=== PATIENT | female | born 1940 | race Caucasian/White ===

== ENCOUNTER 2016-08-29 21:02 | Emergency (ER) | payer MEDICARE, BC, OTHER ==
[2016-02-13 12:10] VITALS: BMI 23.4
[~2016-08-29 21:02] MED LIST: ACETAMINOPHEN325 MG PO; ATIVAN1 MG PO; ATIVAN2 MG PO; BAYER CHEWABLE81 MG PO; CATAPRES0.1 MG PO; CORDARONE200 MG PO; COZAAR50 MG PO; CRESTOR10 MG PO; DYAZIDE 37.5/251 CAP PO; LASIX20 MG PO; LISINOPRIL5 MG PO; NORVASC5 MG PO; PLAVIX75 MG PO; PRADAXA75 MG PO; PREMARIN1.25 MG PO; PROZAC20 MG PO; PROZAC40 MG PO; SORINE80 MG PO; SYNTHROID137 MCG PO
[2016-08-29 23:05] LABS: BASOPHILS 0.5 % (0-2); EOSINOPHILS 10.2 % (0-7); HEMATOCRIT 38.9 % (36.0-48.0); HEMOGLOBIN 12.4 g/dL (12-16); IMMATURE GRANULOCYTES 0.1 % (0-5); LYMPHOCYTES 23.4 % (15-50); MCH 26.6 pg (26.0-34.0); MCHC 31.9 g/dL (31.0-37.0); MCV 83.5 fL (80.0-100.0); MEAN PLATELET VOLUME 10.7 fL (7.4-10.4); NEUTROPHILS 57.8 % (40-80); PLATELET COUNT 269 10x3/uL (130-400); RBC 4.66 10x6/uL (4.00-5.40); RDW 15.1 % (11.5-14.5)
[2016-08-29 23:27] LABS: ALBUMIN 3.5 g/dL (3.4-5.0); ALKALINE PHOSPHATASE 183 U/L (46-116); ALT (SGPT) 13 U/L (10-68); BILIRUBIN - TOTAL 0.31 mg/dL (0.2-1.3); CALC OSMOLALITY 290 mosm/kg (275-300); CALCIUM 8.9 mg/dL (8.5-10.1); CARBON DIOXIDE 26.5 mmol/L (21.0-32.0); CHLORIDE - SERUM 105 mmol/L (98-107); CREATININE - SERUM 1.1 mg/dL (0.6-1.3); GLUCOSE 115 mg/dL (74-106); POTASSIUM - SERUM 3.3 mmol/L (3.5-5.1); PROTEIN - SERUM 7.8 g/dL (6.4-8.2); SODIUM 142 mmol/L (136-145); UREA NITROGEN 33 mg/dL (7-18); eGFR NON AFRICAN AMERICAN 51 mL/min (90-120)
[2016-08-29 23:34] LABS: CREATINE KINASE 148 UL (21-215); MAGNESIUM - SERUM 2.3 mg/dL (1.8-2.4); PRO BNP 2273 pg/mL (0-450)
[2016-08-29 23:37] LABS: TROPONIN-I < 0.017 ng/mL (0.000-0.060)
== END 2016-08-30 00:35 | disposition home or self-care (01) ==
LOC: D.ER 21:02
PROVIDERS: Emergency Medicine
DX: E87.6 Hypokalemia (principal); I50.9 Heart failure, unspecified; I10 Essential (primary) hypertension; Z86.73 Personal history of transient ischemic attack (TIA), and cerebral infarction without residual deficits

== ENCOUNTER 2016-10-18 12:53 | Inpatient (IN) | payer MEDICARE, BC, OTHER ==
[~2016-10-18] VITALS: Ht 167.6 cm; Wt 57.2 kg
[2016-10-18 13:46] LABS: BASOPHILS 0.5 % (0-2); EOSINOPHILS 6.3 % (0-7); HEMATOCRIT 39.6 % (36.0-48.0); HEMOGLOBIN 12.6 g/dL (12-16); IMMATURE GRANULOCYTES 0.2 % (0-5); MCH 26.6 pg (26.0-34.0); MCHC 31.8 g/dL (31.0-37.0); MCV 83.7 fL (80.0-100.0); MEAN PLATELET VOLUME 10.5 fL (7.4-10.4); MONOCYTES 11.4 % (2-11); NEUTROPHILS 58.6 % (40-80); PLATELET COUNT 228 10x3/uL (130-400); RBC 4.73 10x6/uL (4.00-5.40); RDW 16.4 % (11.5-14.5); WBC 6.4 10x3/uL (4.8-10.8)
[2016-10-18 14:13] LABS: ALBUMIN 3.8 g/dL (3.4-5.0); ANION GAP 19.6 mmol/L (8-16); BILIRUBIN - TOTAL 0.5 mg/dL (0.2-1.3); CALCIUM 9.3 mg/dL (8.5-10.1); CARBON DIOXIDE 22.6 mmol/L (21.0-32.0); CREATININE - SERUM 0.9 mg/dL (0.6-1.3); POTASSIUM - SERUM 3.2 mmol/L (3.5-5.1); PROTEIN - SERUM 7.3 g/dL (6.4-8.2)
[2016-10-18 14:27] LABS: APPEARANCE HAZY (CLEAR); BACTERIA FEW /hpf (NONE SEEN); BILIRUBIN NEGATIVE (NEGATIVE); COLOR YELLOW (YELLOW); EPITHELIAL CELLS 0-5 /hpf (0-5); GLUCOSE NEGATIVE (NEGATIVE); KETONE NEGATIVE (NEGATIVE); LEUKOCYTE ESTERASE 2+ (NEGATIVE); NITRITE NEGATIVE (NEGATIVE); PROTEIN TRACE mg/dL (NEGATIVE); SPECIFIC GRAVITY 1.015 (1.005-1.020); UROBILINOGEN NORMAL (NORMAL)
[2016-10-18 17:38] LABS: CKMB 1.3 U/L (0.0-3.6); CREATINE KINASE 123 UL (21-215); TROPONIN-I < 0.017 ng/mL (0.000-0.060)
[2016-10-18 19:30] VITALS: BP 128/62
[2016-10-18 23:10] VITALS: BP 187/94
--- NOTE | 2016-10-18 23:34 | NUR ---
PT IS LYING IN BED WOULD LIKE TO BE WASHED UP, RETRIEVED WASH BASIN , TOWELS AND OTHER SUPPLIES FOR PT, ASSISTED WITH PERSONAL CARE. STATED SHE LIVES AT HOME ALONE AND ABLE TO TAKE CARE OF SELF BUT RECENTLY, WEAKNESS ON RT SIDE WORSE AND MAY NEED ASSISTANCE NOW JUST TO WALK. REHAB CONSULT IN FOR PT. BED IN LOW POSITION, CALL LIGHT IN REACH
--- NOTE | 2016-10-18 23:40 | NUR ---
PT COMPLAINS OF MUNGUIA/ ADVISED NO MEDS ON MAR FOR MUNGUIA AND WILL NEED TO CALL DOCTOR. PT DECLINED AND STATED WILL JUST TRY AND SLEEP IT OFF. NO OTHER COMPLAINTS AT THIS TIME
--- NOTE | 2016-10-19 00:20 | NUR ---
PT STATED SHE TAKES ATAIVAN AT HOME TO HELP HER SLEEP, NO MEDS ON PT'S EMAR THAT WOULD ASSIST WITH SLEEP. PT CONTINUES TO GET UP OUT OF BED WITHOUT USING CALL LIGHT, PUT NEYDA DEIDRE UNDER PT, BED ALARM ALSO, PT STILL CONTINUES TO TRY AN DGET OUT OF BED. VERY RESTLESS. WILL CONTINUE TO MONITOR
[2016-10-19 00:29] LABS: CKMB 0.9 U/L (0.0-3.6); CREATINE KINASE 104 UL (21-215); TROPONIN-I 0.016 ng/mL (0.000-0.060)
[2016-10-19 03:15] VITALS: BP 185/82
[2016-10-19 05:05] LABS: BASOPHILS 0.3 % (0-2); HEMATOCRIT 39.1 % (36.0-48.0); HEMOGLOBIN 12.6 g/dL (12-16); IMMATURE GRANULOCYTES 0.2 % (0-5); LYMPHOCYTES 25.6 % (15-50); MCH 26.6 pg (26.0-34.0); MCHC 32.2 g/dL (31.0-37.0); MCV 82.7 fL (80.0-100.0); MEAN PLATELET VOLUME 10.6 fL (7.4-10.4); MONOCYTES 11.8 % (2-11); NEUTROPHILS 55.1 % (40-80); PLATELET COUNT 231 10x3/uL (130-400); RBC 4.73 10x6/uL (4.00-5.40); RDW 16.5 % (11.5-14.5); WBC 5.8 10x3/uL (4.8-10.8)
[2016-10-19 05:31] LABS: ALBUMIN 3.7 g/dL (3.4-5.0); ANION GAP 15.5 mmol/L (8-16); BILIRUBIN - TOTAL 0.6 mg/dL (0.2-1.3); CALCIUM 9.2 mg/dL (8.5-10.1); CARBON DIOXIDE 22.6 mmol/L (21.0-32.0); CREATININE - SERUM 0.9 mg/dL (0.6-1.3); LDL-HDL RATIO 1.4 ratio (1.5-3.5); POTASSIUM - SERUM 3.1 mmol/L (3.5-5.1); PROTEIN - SERUM 7.3 g/dL (6.4-8.2)
[2016-10-19 05:45] LABS: CKMB 1.2 U/L (0.0-3.6); CREATINE KINASE 106 UL (21-215); TROPONIN-I < 0.017 ng/mL (0.000-0.060)
[2016-10-19 06:20] VITALS: BP 128/62; BMI 20.3
--- NOTE | 2016-10-19 07:40 | NUR ---
PATIENT RECEIVED ALERT IN BED. NO SIGNS OF DISTRESS NOTED. SIDE RAILS UP X2. BED IN LOW POSITION. CALL LIGHT IN REACH. NEYDA ALARM ON.
--- NOTE | 2016-10-19 07:52 | NUR ---
BP 212/90. APRESOLINE ADMINISTERED PER PRN ORDER.
--- NOTE | 2016-10-19 08:00 | NUR ---
ASSESSED RESP STATUS OF PT. BILATERAL CLEAR BREATH SOUNDS NOTED TO ALL REGIONS OF LUNGS. OEYR370% NO SIGNS OF ANY RESPIRATORY COMPROMISE.
[2016-10-19 08:58] VITALS: BP 212/90
--- NOTE | 2016-10-19 09:00 | NUR ---
PATIENT SITTING UP ON SIDE OF BED ALERT AND EATING BREAKFAST. BED IN LOW POSITION. CALL LIGHT IN REACH. NEYDA ALARM ON.
[2016-10-19 09:46] VITALS: BP 136/61
--- NOTE | 2016-10-19 10:17 | NUR ---
Rehab Note- Acute Rehab Prescreen ordered. The patient has an appropriate acute rehab screen. She has a PT, OT, ST eval order, and also a MRi ordered. Will await functional mobility. Will continue to follow the patient at this time. Thank you for this referral! Delia Phan RN Clinical Liaison, [facility] Rehab
--- NOTE | 2016-10-19 11:53 | NUR ---
PATIENT SITTING UP IN CHAIR AT BEDSIDE. NO SIGNS OF DISTRESS NOTED. CALL LIGHT IN REACH. NEYDA ALARM ON.
--- NOTE | 2016-10-19 12:02 | NUR ---
PER DR SCHAFFER, UNABLE TO DO MRI DUE TO BULLET IN PATIENT'S HEAD IS TOO CLOSE TO CAROTID TO BE SAFE.
--- NOTE | 2016-10-19 12:04 | NUR ---
DR REYNOLDS'S OFFICE NOTIFIED UNABLE TO DO MRI.
[2016-10-19] MEDS ORDERED: IPRAT-ALBUT 0.5-3 ML UPD (12:06)
[2016-10-19] MEDS ORDERED: HYDRALAZINE20 MG/ML IV (12:07)
[2016-10-19] MEDS ORDERED: PROTONIX40 MG PO (12:08)
[2016-10-19] MEDS ORDERED: Demerol IV (12:08)
[2016-10-19] MEDS ORDERED: ONDANSETRON4 MG/2 M3 IV (12:08)
[2016-10-19] MEDS ORDERED: ATIVAN1 MG PO (12:08)
[2016-10-19 12:38] VITALS: Ht 167.6 cm; Wt 57.2 kg
[2016-10-19 13:07] VITALS: BP 159/72
--- NOTE | 2016-10-19 13:46 | NUR ---
PATIENT REPOSITIONED IN BED. WELL TOLERATED. SIDE RAILS UP X2. BED IN LOW POSITION. CALL LIGHT IN REACH. NEYDA ALARM ON. AT BEDSIDE.
[2016-10-19 15:41] VITALS: BP 136/68
--- NOTE | 2016-10-19 17:20 | NUR ---
SITTING UP IN CHAIR ALERT. NO SIGNS OF DISTRESS NOTED. CALL LIGHT IN REACH. DENIES NEEDS.
--- NOTE | 2016-10-19 18:17 | NUR ---
OT NOTE: PT COMPLETED SHOWER WITH MIN/CGA. PT COMPLETED DYNAMIC SITTING/STANDING BALANCE AXS WITH CGA/MIN A. THANK YOU, JEFF WILLETT/Goldie
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
--- NOTE | 2016-10-19 21:30 | NUR ---
PT BED ALARM GOING OFF, WHEN IN PT'S ROOM PT WAS STANDING UP WANTED TO KNOW THERES SO MANY SHOOTINGS GOING ON OUTSIFR AND PEOPLE YELLING AT EACH OTHER ASSURED PT SHE WAS SAFE THAT THIS WAS A HOSPITAL AND NO ONE IS GOING TO HURT HER. HAD TO CALL SECURITY TO ENSURE PT THAT SHE WAS SAFE AND WE DO HAVE SECURITY HERE. LEFT LIGHT ON FOR PT AND ADDED ATIVAN TO BED TIME MEDS. BED IN LOW POSITION BC LIGHT IN REACG
--- NOTE | 2016-10-19 22:02 | NUR ---
HARJINDER STONE ATTENTION PT BP IS 192/90, GAVE PT 10 MG OF APRESALINE. WILL CONTINUE TO MONITOR
[2016-10-20] VITALS: BP 192/92
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
--- NOTE | 2016-10-20 03:30 | NUR ---
RECIEVED CALL FROM STANTON ON MONITORS, WAS ADVISED THAT PT HR WAS FIB AT 0200 AND SINCE 1999 PT WAS PRETTY STEADY. STANTON STATED PT HAS BEEN SR SINCE 7-9 THEN HR HAS BEEN FLUCTUATIONG BETWEEN 103-138, HAD MONOGRAM AND LETTER PASTER TAKE PT VITALS AND PT BP IS 143/89 AND HR IS 120. SPOKE TO SCHOOL CAFETERIA COOK AND WAS ADVISED TO GET PT TO TAKE ATIVAN AND SEE IF HR SLOWS DOWN. WILL CONTINUE TO MONITOR
[2016-10-20 04:00] VITALS: BP 145/89
--- NOTE | 2016-10-20 04:03 | NUR ---
TODD MONTERO AND DELANO RN ASSISTING PATIENT BACK TO BED. NO VISIBLE SIGNS OF DISTRESS. BED IN LOWEST POSITION AND CALL LIGHT WITHIN REACH.
[2016-10-20 05:56] LABS: BASOPHILS 0.3 % (0-2); EOSINOPHILS 7.4 % (0-7); HEMATOCRIT 40.8 % (36.0-48.0); HEMOGLOBIN 13.2 g/dL (12-16); IMMATURE GRANULOCYTES 0.2 % (0-5); LYMPHOCYTES 26.9 % (15-50); MCH 26.9 pg (26.0-34.0); MCHC 32.4 g/dL (31.0-37.0); MCV 83.1 fL (80.0-100.0); MEAN PLATELET VOLUME 11.1 fL (7.4-10.4); MONOCYTES 13.4 % (2-11); NEUTROPHILS 51.8 % (40-80); PLATELET COUNT 255 10x3/uL (130-400); RBC 4.91 10x6/uL (4.00-5.40); RDW 17.2 % (11.5-14.5); WBC 6.2 10x3/uL (4.8-10.8)
[2016-10-20 06:28] LABS: ALBUMIN 3.4 g/dL (3.4-5.0); ANION GAP 15.4 mmol/L (8-16); BILIRUBIN - TOTAL 0.4 mg/dL (0.2-1.3); CALCIUM 9.6 mg/dL (8.5-10.1); CREATININE - SERUM 1.1 mg/dL (0.6-1.3); POTASSIUM - SERUM 3.4 mmol/L (3.5-5.1); PROTEIN - SERUM 7.4 g/dL (6.4-8.2)
--- NOTE | 2016-10-20 07:09 | NUR ---
SPOKE TO STANTON IN REGARDS TO PT HR, STATED HR IS STILL GOING UP GRADUALLY EVEN AFTER ATIVAN GIVEN AT 0409, CALLED DUNCAN GUADARRAMA AND WAS ADVISED TO CALL DR. REILLY WINDSOR CARDIOLOGY AND RECEIVED CALL BACK FROM DR. MURGUIA. ADVISED OF PT GRADUAL AFIB SINCE 0200. DR MURGUIA STATED WILL HAVE DR SALINAS COME SEE HER THIS MORNING DURING HIS ROUNDS
--- NOTE | 2016-10-20 07:37 | NUR ---
REPORT RECEIVED FROM INVESTIGATOR CASH SHORTAGE NURSE. CALL LIGHT IN REACH.
--- NOTE | 2016-10-20 08:10 | NUR ---
ASSESSMENT COMPLETED. BED ALARM ON. CALL LIGHT IN REACH. WILL CONTINUE WITH PLAN OF CARE.
[2016-10-20 08:42] VITALS: BP 124/86
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
--- NOTE | 2016-10-20 10:44 | NUR ---
AM MEDS ADMINISTERED PER IPNEDA KOO.
--- NOTE | 2016-10-20 12:14 | NUR ---
Rehab Note- Visited with the patient and her about [facility] IRF, the patient is stating she wants to go home to get organized and then come back to rehab. wants her to come straight to rehab after discharge from the acute hospital. Can admit the patient to [facility] Rehab when ready for discharge from the acute hospital. Thank you for this referral! Delia Phan RN Clinical Liaison, [facility] Rehab
--- NOTE | 2016-10-20 12:20 | NUR ---
IN ROOM WITH PATIENT. NO NEEDS VOICED AT THIS TIME. CALL LIGHT IN REACH.
[2016-10-20 12:52] VITALS: BP 109/64
--- NOTE | 2016-10-20 14:52 | NUR ---
VISITORS IN ROOM AT THIS TIME. DENIES NEEDS. CALL LIGHT IN REACH.
--- NOTE | 2016-10-20 16:15 | NUR ---
AMBULATING IN HALLWAY WITH FAMILY.
--- NOTE | 2016-10-20 16:20 | NUR ---
AMBULATING IN HALLWAY WITH SISTERS. TOLERATING WELL.
--- NOTE | 2016-10-20 18:25 | NUR ---
NO CHANGES IN INITIAL ASSESSMENT COMPLETED. CALL LIGHT IN REACH. BED ALARM ON. WILL CONTINUE WITH PLAN OF CARE.
[2016-10-20 20:00] VITALS: BP 115/68
--- NOTE | 2016-10-20 22:00 | NUR ---
PATIENT IS IN BED. CONFUSED. NO SIGNS OF DISTRESS NOTED. NEYDA MAT ALARM ON. PATIENT DENIES NEEDS AT THIS TIME. BED IN LOWEST POSITION, CALL LIGHT IN REACH. BED RIALS UP X'S 2.
[2016-10-21] VITALS: BP 115/64
[2016-10-21 04:00] VITALS: BP 136/79
[2016-10-21 05:38] LABS: BASOPHILS 0.4 % (0-2); EOSINOPHILS 6.3 % (0-7); HEMATOCRIT 37.8 % (36.0-48.0); HEMOGLOBIN 12.2 g/dL (12-16); IMMATURE GRANULOCYTES 0.3 % (0-5); LYMPHOCYTES 26.7 % (15-50); MCH 26.7 pg (26.0-34.0); MCHC 32.3 g/dL (31.0-37.0); MCV 82.7 fL (80.0-100.0); MEAN PLATELET VOLUME 10.8 fL (7.4-10.4); NEUTROPHILS 52.3 % (40-80); PLATELET COUNT 236 10x3/uL (130-400); RBC 4.57 10x6/uL (4.00-5.40); RDW 17.1 % (11.5-14.5); WBC 7.5 10x3/uL (4.8-10.8)
[2016-10-21 05:45] LABS: ALBUMIN 3.2 g/dL (3.4-5.0); BILIRUBIN - TOTAL 0.38 mg/dL (0.2-1.3); CALCIUM 8.8 mg/dL (8.5-10.1); CARBON DIOXIDE 25.5 mmol/L (21.0-32.0); CREATININE - SERUM 1.2 mg/dL (0.6-1.3); POTASSIUM - SERUM 3.5 mmol/L (3.5-5.1); PROTEIN - SERUM 6.6 g/dL (6.4-8.2)
--- NOTE | 2016-10-21 07:27 | NUR ---
REPORT RECEIVED FROM MICROWAVE RADIO TECHNICIAN NURSE. CALL LIGHT IN REACH.
[2016-10-21 08:58] VITALS: BP 124/72
--- NOTE | 2016-10-21 09:20 | NUR ---
ASSESSMENT COMPLETED. AM MEDS ADMINISTERED. DEMEROL IVP FOR PAIN AND ATIVAN PO PER ANXIETY AND ATTEMPTING TO GET OUT OF BED. ALARM ON. REFUSES SCDs. CALL LIGHT IN REACH. WILL CONTINUE WITH PLAN OF CARE.
--- NOTE | 2016-10-21 11:20 | NUR ---
IN BED WITH EYES CLOSED. RESP EVEN AND UNLABORED. CALL LIGHT IN REACH.
--- NOTE | 2016-10-21 12:24 | NUR ---
NUTRITION F/U CHART REVIEWED. PT VISIT. TOLERATING AHA DIET. WILL CONTINUE TO PROVIDE DIET. MONITOR PT PROGRESS. RD FOLLOWING
[2016-10-21 12:48] VITALS: BP 133/79
[2016-10-21] MEDS ORDERED: ZOFRAN4 MG PO (13:00)
[2016-10-21] MEDS ORDERED: LEVAQUIN250 MG PO (13:00)
--- NOTE | 2016-10-21 13:22 | NUR ---
LEVAQUIN 250 MG PO PER PINEDA FARMER. FAMILY IN ROOM. CALL LIGHT IN REACH.
--- NOTE | 2016-10-21 13:41 | NUR ---
Patient Name: CAITLIN BROOKS Admission Status: ER Accout number: [id number] Admission Date: 10-18-2016 : 1940 Admission Diagnosis:WEAKNESS Attending: GIBSON JORDAN Current LOS: 3 Anticipated DC Date: Planned Disposition: Inpatient Rehab Primary Insurance: MEDICARE A & B Discharge Planning Comments: CM met with patient and (Joel) to discuss discharge planning needs. Patient would like HH set up when she is discharged home from inpatient rehab. states that he helps her with whatever she needs. She has a cane at home and 1 step to enter. CM will continue to follow and assist as needed. [place]CP: [facility] [place] Joel Brooks (spouse) [phone] Grinder Operator: Lucy Vitale * Is the patient Alert and Oriented? Yes 0 * How many steps to enter\exit or inside your home? 1 0 * PCP aramis 0 * [place] * Preadmission Environment Home with Family 0 * ADLs Partial Dependent 0 * Partial ADLs (Assistance needed) Ambulation Bathing Dressing Eating Medication Management 0 * Equipment Cane 0 * List name and contact numbers for known caregivers / representatives who currently or will assist patient after discharge: joel brooks ([phone]) 0 * Community resources currently utilized None 0 * Additional services required to return to the preadmission environment? Yes 0 * Can the patient safely return to the preadmission environment? Yes 0 * Has this patient been hospitalized within the prior 30 days at any hospital? No 0 Grand Total: 0
--- NOTE | 2016-10-21 14:47 | NUR ---
OT NOTE: PT ABLE TO PERFORM BED MOB WITH LIMITED ASSIST; AMB IN ROOM WITH ASSIST, HOWEVER, PT REPORTS THAT SHE HAS BEEN DOING IT WITHOUT ASSIST. EXPLAINED FALL PRECAUTIONS, AND THE NEED FOR HER TO ASK FOR HELP WHEN SHE WANTS TO GET UP; PT PERFORMED FEEDING TASKS WITHOUT DIFFICULTY; REPORTS THAT SHE IS STILL NOT BACK TO PLOF ; PT TO BE D/CD TO REHAB TODAY.
--- NOTE | 2016-10-21 15:06 | NUR ---
REPORT CALLED TO REHAB NURSE.
--- NOTE | 2016-10-21 15:30 | NUR ---
DC'D TO REHAB. ESCORTED TO ROOM 1108B VIA WC WITH NURSE WITH BELONGINGS.
--- NOTE | 2016-10-21 19:16 | EC ---
PATIENT:CAITLIN BROOKS DATE OF SERVICE: 10/18/16 SEX: F MEDICAL RECORD: [id number] DATE OF : 38 LOCATION:[facility] AGE OF PATIENT: 76 ADMISSION DATE: 10/18/16 REFERRING PHYSICIAN: INTERPRETING PHYSICIAN: JESSE OZUNA MD ECHOCARDIOGRAM REPORT ECHO CHARGES 4 ECHO COMPLETE CLINICAL DIAGNOSIS: TIA VS. CVA HX OF CAD/STENTS/CVA ECHOCARDIOGRAPHIC MEASUREMENTS (adult normal given) AC root (d.<3.7cm) 3.6 cm LV Septum d (<1.2 cm> 1.4 cm Valve Excursion 1.4 cm LV Septum (systole) 2.0 cm Left Atria (s.<4.0cm> 3.1 cm LVPW d(<1.2cm) 1.6 cm RV (d.<2.3cm) 4.5 cm LVPW (sytole) 1.9 cm LV diastole(<5.6CM) 4.9 cm MV E-F(>70mm/sec) cm LV systole 3.2 cm LVOT Diameter 1.5 cm MV exc.(>10mm) 1.7 cm Est.ejection fraction (50-75%) % Pericardial Effusion N DOPPLER: LVIT cm/sec A 74.0 cm/sec E 122 cm/sec LA cm/sec RVSP 45 mmHg LVOT 100 cm/sec AOP1/2T m/s Asc. Ao 116 cm/sec RVOT 78 cm/sec RA cm/sec PA 121 cm/sec AV Gradient Peak 10.28mmHg AV Mean 5.85 mmHg AV Area 1.1 cm MV Gradient Peak 4.82 mmHg MV Mean 1.83 mmHg MV Area cm COMMENTS: Strap Machine Operator Automatic: Baldev BUCIO Perishable Freight Inspector: Giovanna Ozuna TAPE# PACS DATE OF SERVICE: 10/20/2016 PROCEDURE: Transthoracic Echocardiogram FINDINGS: 1. Left ventricle: The left ventricle shows moderate concentric left ventricular hypertrophy with an ejection fraction of 65%. There is no regional wall motion abnormalities. The inflow characteristics are consistent with diastolic dysfunction. 2. The left atrium is mildly enlarged with normal function. ECHOCARDIOGRAM REPORT [id number] CAITLIN BROOKS 3. The mitral valve has mild mitral regurgitation. 4. The right atrium is dilated; however, the right ventricular systolic pressures are near normal to mildly elevated. 5. The right ventricle is mildly enlarged with right ventricular hypertrophy. 6. The tricuspid valve shows a trileaflet structure, mild sclerosis without significant evidence of stenosis or regurgitation. 7. The pulmonic valve is not well visualized, but by Doppler evaluation appears to be normal. 8. The pericardium is normal. 9. The inferior vena cava was not demonstrated on this evaluation. CONCLUSIONS: The patient has evidence of hypertensive heart disease without significant evidence of valvular abnormalities. TRANSINT:[id number] Voice Confirmation ID: [id number] DOCUMENT ID: [id number] JESSE OZUNA MD at 1916 CC: [id number] DICTATION DATE: 10/20/16 1610 VOICE WRITING REPORTER: 10/20/16 2229 DIS IN 10/21/16 [facility] [address] [place] [address]
== END 2016-10-21 15:30 | DRG 948 ==
LOC: D.ER 12:53 → D.MS 16:11
PROVIDERS: Emergency Medicine; ADMIT Family Medicine
DX: R53.1 Weakness (principal); I69.351 Hemiplegia and hemiparesis following cerebral infarction affecting right dominant side; I16.0 Hypertensive urgency; E87.6 Hypokalemia; I48.91 Unspecified atrial fibrillation; I69.391 Dysphagia following cerebral infarction; R13.10 Dysphagia, unspecified; I25.10 Atherosclerotic heart disease of native coronary artery without angina pectoris; E03.9 Hypothyroidism, unspecified; Z91.81 History of falling; W34.00XS Accidental discharge from unspecified firearms or gun, sequela

== ENCOUNTER 2016-10-21 15:56 | Inpatient (IN) | payer MEDICARE, BC, OTHER ==
[~2016-10-21] VITALS: Ht 167.6 cm; Wt 62.1 kg
[~2016-10-21 15:56] MED LIST changes: +Demerol IV; +HYDRALAZINE20 MG/ML IV; +IPRAT-ALBUT 0.5-3 ML UPD; +LEVAQUIN250 MG PO; +ONDANSETRON4 MG/2 M3 IV; +PROTONIX40 MG PO; +ZOFRAN4 MG PO
[2016-10-21 19:22] VITALS: BP 97/61; BMI 22.2
[2016-10-21 21:55] VITALS: BP 181/68
[2016-10-22 06:57] LABS: BASOPHILS 0.5 % (0-2); EOSINOPHILS 7.9 % (0-7); HEMATOCRIT 36.5 % (36.0-48.0); HEMOGLOBIN 11.6 g/dL (12-16); IMMATURE GRANULOCYTES 0.2 % (0-5); LYMPHOCYTES 25.7 % (15-50); MCH 26.4 pg (26.0-34.0); MCHC 31.8 g/dL (31.0-37.0); MCV 83.1 fL (80.0-100.0); MEAN PLATELET VOLUME 10.8 fL (7.4-10.4); MONOCYTES 9.7 % (2-11); PLATELET COUNT 226 10x3/uL (130-400); RBC 4.39 10x6/uL (4.00-5.40); RDW 17.3 % (11.5-14.5); WBC 5.8 10x3/uL (4.8-10.8)
[2016-10-22 07:04] LABS: ANION GAP 12.8 mmol/L (8-16); CALCIUM 8.5 mg/dL (8.5-10.1); CARBON DIOXIDE 25.5 mmol/L (21.0-32.0); CREATININE - SERUM 1.1 mg/dL (0.6-1.3); POTASSIUM - SERUM 3.3 mmol/L (3.5-5.1)
[2016-10-22 08:11] VITALS: BP 111/50
[2016-10-22 09:52] VITALS: Ht 167.6 cm; Wt 62.1 kg
[2016-10-22 21:45] VITALS: BP 182/79
[2016-10-23 07:11] VITALS: BP 149/66
[2016-10-23 08:00] VITALS: BP 149/66
[2016-10-23 20:00] VITALS: BP 192/86
[2016-10-24 19:00] VITALS: BP 186/78
[2016-10-24 19:22] VITALS: BP 149/77
[2016-10-24 19:30] VITALS: BP 186/78
[2016-10-25 06:26] LABS: BASOPHILS 0.6 % (0-2); EOSINOPHILS 8.3 % (0-7); HEMATOCRIT 35.1 % (36.0-48.0); HEMOGLOBIN 11.3 g/dL (12-16); LYMPHOCYTES 28.7 % (15-50); MCH 26.8 pg (26.0-34.0); MCHC 32.2 g/dL (31.0-37.0); MCV 83.4 fL (80.0-100.0); MEAN PLATELET VOLUME 10.5 fL (7.4-10.4); MONOCYTES 11.8 % (2-11); NEUTROPHILS 50.6 % (40-80); PLATELET COUNT 219 10x3/uL (130-400); RBC 4.21 10x6/uL (4.00-5.40); RDW 17.2 % (11.5-14.5); WBC 5.1 10x3/uL (4.8-10.8)
[2016-10-25 06:48] LABS: ANION GAP 12.3 mmol/L (8-16); CARBON DIOXIDE 29.3 mmol/L (21.0-32.0); CREATININE - SERUM 0.9 mg/dL (0.6-1.3); POTASSIUM - SERUM 3.6 mmol/L (3.5-5.1)
[2016-10-25 08:00] VITALS: BP 184/90
[2016-10-25 20:07] VITALS: BP 174/70
[2016-10-26 08:17] VITALS: BP 178/84
[2016-10-26 21:10] VITALS: BP 197/84
[2016-10-27 09:03] VITALS: BP 139/69
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
[2016-10-27 22:10] VITALS: BP 187/83
[2016-10-28 08:47] VITALS: BP 183/82
[2016-10-28 21:00] VITALS: BP 193/79
[2016-10-29 06:06] LABS: BASOPHILS 0.5 % (0-2); EOSINOPHILS 11.7 % (0-7); HEMATOCRIT 33.2 % (36.0-48.0); HEMOGLOBIN 10.7 g/dL (12-16); IMMATURE GRANULOCYTES 0.2 % (0-5); MCHC 32.2 g/dL (31.0-37.0); MCV 83.6 fL (80.0-100.0); MEAN PLATELET VOLUME 10.6 fL (7.4-10.4); MONOCYTES 9.7 % (2-11); NEUTROPHILS 47.9 % (40-80); PLATELET COUNT 221 10x3/uL (130-400); RBC 3.97 10x6/uL (4.00-5.40); RDW 17.4 % (11.5-14.5); WBC 5.5 10x3/uL (4.8-10.8)
[2016-10-29 06:20] LABS: ANION GAP 10.2 mmol/L (8-16); CALCIUM 8.4 mg/dL (8.5-10.1); POTASSIUM - SERUM 3.2 mmol/L (3.5-5.1)
[2016-10-29 07:39] VITALS: BP 178/76
[2016-10-29] MEDS ORDERED: Wellbutrin PO (10:28)
[2016-10-29] MEDS ORDERED: VOLTAREN100 GM TOPICAL (10:29)
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
== END 2016-10-29 12:33 | disposition home health service (06) | DRG 56 ==
LOC: D.REHAB 15:56
PROVIDERS: ADMIT Emergency Medicine
DX: I69.351 Hemiplegia and hemiparesis following cerebral infarction affecting right dominant side (principal); J18.9 Pneumonia, unspecified organism; R20.9 Unspecified disturbances of skin sensation; R47.1 Dysarthria and anarthria; I25.10 Atherosclerotic heart disease of native coronary artery without angina pectoris; E03.9 Hypothyroidism, unspecified; I10 Essential (primary) hypertension; R41.82 Altered mental status, unspecified; R13.12 Dysphagia, oropharyngeal phase; I48.2 Chronic atrial fibrillation; R53.1 Weakness; E87.6 Hypokalemia

== ENCOUNTER 2016-12-29 08:36 | Outpatient (CLI) | payer MEDICARE, BC, OTHER ==
--- NOTE | ~2016-12-29 | HEMODYNAMI ---
PATIENT:CAITLIN BROOKS MEDICAL RECORD: [id number] : 36 LOCATION:DMarysolCAT ADMISSION DATE: 12/29/16 Generatedon:12/29/201611:10 Patient name: CAITLIN BROOKS Patient #: [id number] : 1940 Date of study: 12/29/2016 Page: Of Hemodynamic Procedure Report Patient Data Patient Demographics Procedure consent was obtained First Name: CAITLIN Gender: Female Last Name: TODD : 1940 Middle Initial: E Age: 76 year(s) Patient #: [id number] Race: SSN: [id number] Additional ID: [id number] Contact details Address: [address] [place] [address] State: [place] City: [place] Zip code: [address] Past Medical History Allergies Allergen Reaction Date Comments Reported Other allergy 02/06/2016 morphine,codeine Admission Admission Data Admission Date: 12/29/2016 Admission Time: 8:36 Arrival Date: 12/29/2016 Arrival Time: 0:00 Admit Source: Other Height (in.): 66 BSA: 1.74 (m2) Height (cm.): 167.64 BMI: 23.24 (kg/m2) Weight (lbs.): 144 Weight (kg.): 65.32 Lab Results Lab Result Date: 12/29/2016 Lab Result Time: 0:00 Biochemistry Name Units Result Min Max BUN mg/dl 25 --(----)-* 7 18 Creatinine mg/dl 1 --(--*-)-- 0.6 1.3 CBC Name Units Result Min Max Hemoglobin g/dl 12.3 *-(----)-- 13.5 17.5 Procedure Procedure Types Cath Procedure Diagnostic Procedure [facility] w/Coronaries FFR/IVUS Intra-Coronary IVUS Initial PCI Procedure Coronary Stent Initial Miscellaneous Procedures Moderate Sedation up to 45 minutes Procedure Description Procedure Date Procedure Date: 12/29/2016 Procedure Start Time: 10:49 Procedure End Time: 11:07 Procedure Staff Name Function Kyle Mathur MD Performing Physician Kelly De La O RT Scrub Mouna Slade RT Monitor Jeffrey Alcantar RN Nurse Procedure Data Cath Procedure Fluoroscopy Diagnostic fluoroscopy Total fluoroscopy Time: 4.2 time: 4.2 min min Diagnostic fluoroscopy Total fluoroscopy dose: 520 dose: 520 mGy mGy Contrast Material Contrast Material Type Amount (ml) Isovue 300 115 Entry Location Entry Primary Successful Side Size Upsize Upsize Entry Closure Succes sful Closure Location (Fr) 1 (Fr) 2 (Fr) Remarks Device Remarks Femoral Right 5 Fr 6 Fr Exoseal artery Short Estimated blood loss: 5 ml Diagnostic catheters Device Type Used For End Catheter Placement Cordis 5Fr Pigtail LV Angiography Catheter (MP) Cordis 5Fr JL 4.0 Left Coronary Catheter (MP) Angiography Cordis 5Fr 3DRC Catheter Right Coronary (MP) Angiography Procedure Complications No complications Procedure Medications Medication Administration Route Dosage Oxygen NC 2 l/min Heparin Flush Bag added to field 2 bags (1000units/500ml NS) 0.9% NaCl I.V. 100 ml/hr Fentanyl I.V. 50 mcg Versed I.V. 1 mg Fentanyl I.V. 50 mcg Versed I.V. 1 mg Heparin Bolus I.V. 4000 units Hemodynamics Rest BSA: 1.74 (m2) HGB: 12.3 (g/dl) O2 Consumption: Estimated: 147.23 (ml/min) O2 Co nsumption indexed: Estimated:84.61 (ml/min/m) Heart Rate: 55 (bpm) Pressure Samples Time Site Value (mmHg) Purpose Heart Use Rate(bpm) 10:51 LV 191/17,45 Snapshot 50 Snapshots Pre Cath Intra NCS Post Cath Vital Signs Time Heart Resp SPO2 etCO2 NIBP (mmHg) Rhythm Pain Sedation Rate (ipm) (%) (mmHg) Status Level (bpm) 10:30:27 53 18 96 0 213/84(178) NSR 0 (11) 10(A) , No pain 10:35:02 52 19 96 0 197/88(159) NSR 0 (11) 10(A) , No pain 10:39:38 52 19 99 31.7 205/89(171) NSR 0 (11) 10(A) , No pain 10:44:13 49 17 99 30.2 206/89(162) NSR 0 (11) 10(A) , No pain 10:48:45 47 18 98 30.2 177/71(134) NSR 0 (11) 10(A) , No pain 10:53:11 58 18 97 34.7 178/92(135) NSR 0 (11) 9(A) , No pain 10:57:44 52 17 98 31.7 191/77(159) NSR 0 (11) 9(A) , No pain 11:02:18 49 17 98 15.1 169/65(121) NSR 0 (11) 9(A) , No pain 11:07:30 61 17 98 35.5 196/107(143) NSR 0 (11) 9(A) , No pain Medications Time Medication Route Dose Verified Delivered Reason Notes Effectiveness by by 10:36:54 Oxygen NC 2 Kyle Jeffrey l/min Kareen Alcantar RN 10:37:06 Heparin Flush added 2 Kyle Jeffrey used for Bag to bags Kareen Alcantar RN procedure (1000units/500ml field NS) 10:37:18 0.9% NaCl I.V. 100 Kyle Jeffrey Per physician ml/hr Kareen Alcantar RN 10:45:12 Fentanyl I.V. 50 Kyle Jeffrey for sedation mcg Kareen Alacntar RN 10:45:18 Versed I.V. 1 mg Kyle Bragay for sedation Kareen Alcantar RN 10:49:09 Fentanyl I.V. 50 Kyle Murphy for sedation mcg Kareen Alcantar RN 10:49:13 Versed I.V. 1 mg Kyle Bragay for sedation Kareen Alcantar RN 10:55:51 Heparin Bolus I.V. 4000 Kylesonal Bragay for units Kareen Alcantar RN anticoagulation Procedure Log Time Note 10:12:28 Informed consent obtained and on chart 10:12:33 Diagnostic Cath Status : Elective 10:12:47 Kelly De La O RT(R) sent for patient. Start room use. 10:12:48 Time tracking: Regular hours 10:12:53 Plan of Care:Hemodynamics will remain stable., Cardiac rhythm will remain stable., Comfort level will be maintained., Respiratory function will remain adequate., Patient/ family verbilizes understanding of procedure., Procedure tolerated without complication., Recovers from procedure without complications.. 10:14:03 Admit Source: Other 10:14:05 Arrival Date: 12/29/2016 12:00:00 AM 10:14:15 Patient Height : 66 inches 10:14:20 Patient Weight : 144 lbs 10:27:26 Patient received from Pre/Post Procedure Room to CCL 2 Alert and oriented. Tansferred to table in Supine position. 10:28:12 Warm blankets applied, and brandi hugger turned on for patient comfort. 10:28:13 Correct patient and procedure confirmed by team. 10:28:13 ECG and BP/O2 sat monitors applied to patient. 10:28:14 Vital chart was started 10:28:15 Baseline sample Acquired. 10:28:22 Rhythm: sinus rhythm 10:28:23 Full Disclosure recording started 10:28:27 H&P Date Dictated: 12/29/2016 Within 30 days and on chart., H&P Addendum completed by physician on day of procedure. (MUST COMPLETE FOR ALL OUTPATIENTS). 10:28:28 Pre-procedure instructions explained to patient. 10:28:28 Pre-op teaching completed and patient verbalized understanding. 10:28:29 Family in waiting room. 10:28:31 Patient NPO since Midnight. 10:28:41 Is the patient allergic to Iodine/contrast media? No. 10:28:44 Was the patient premedicated? No 10:28:46 Is patient on blood thinner?Yes 10:28:51 ACC The patient was administered the following blood thiners within the last 24 hours: ACCPlavix 10:28:54 Patient diabetic? No. 10:28:57 Previous problem with sedation/anesthesia? No ? 10:29:00 Snore? No 10:29:01 Sleep apnea? No 10:29:07 Deviated septum? No 10:29:09 Opens mouth fully? Yes 10:29:09 Sticks out tongue? Yes 10:29:11 Airway obstruction? No ? 10:29:14 Dentures? No ? 10:29:25 Pre procedure: right dorsailis pedis pulse 1+ Palpable, but thready & weak; easily obliterated 10:29:28 Pre procedure: left dorsailis pedis pulse 1+ Palpable, but thready & weak; easily obliterated 10:29:35 IV patent on arrival in left antecubital with 0.9% NaCl at O. 10::59 Lab Result : Creatinine 1 mg/dl 10::59 Lab Result : BUN 25 mg/dl 10::59 Lab Result : Hemoglobin 12.3 g/dl 10:31:03 Lab results completed and on chart. 10:31:07 Right groin area was prepped with chlora-prep and draped in sterile fashion 10::08 Alarms reviewed by R. N. 10:: Sharps counted by scrub and verified by R.N. 10:31: Physician arrived 10::11 --------ALL STOP TIME OUT------ 10::11 Final Timeout: patient, procedure, and site verified with staff and physician. All members of the team are in agreement. 10:31:12 Right groin site verified by team. 10:31:15 Physical assessment completed. ASA score P 2 - A patient with mild systemic disease as per Kyle Mathur MD. 10:31:19 Sedation plan: IV Moderate Sedation Versed, Fentanyl 10:31:46 Use device set Femoral Dx 10:31:47 Acist Syringe opened to sterile field. 10:31:47 Bag Decanter opened to sterile field. 10:31:47 Medline Cath Pack opened to sterile field. 10:31:48 Terumo 5Fr Aspen Sheath opened to sterile field. 10:31:49 St Al 260cm J .035 wire opened to sterile field. 10:31:49 Acist Hand Control opened to sterile field. 10:31:50 Acist Manifold opened to sterile field. 10:31:50 Diagnostic Infinity 5Fr Multipack catheter opened to sterile field. 10:31:51 Tegaderm 4 x 4 opened to sterile field. 10:36:54 Oxygen 2 l/min NC was administered by Jeffrey Alcantar RN; ; 10:37:06 Heparin Flush Bag (1000units/500ml NS) 2 bags added to field was administered by Jeffrey Alcantar RN; used for procedure; 10:37:18 0.9% NaCl 100 ml/hr I.V. was administered by Jeffrey Alcantar RN; Per physician; 10:42:54 Zero performed for pressure channel P1 10:43:48 Zero performed for pressure channel P1 10:45:12 Fentanyl 50 mcg I.V. was administered by Jeffrey Alcantar RN; for sedation; 10:45:18 Versed 1 mg I.V. was administered by Jeffrey Alcantar RN; for sedation; 10:49:09 Fentanyl 50 mcg I.V. was administered by Jeffrey Alcantar RN; for sedation; 10:49:13 Versed 1 mg I.V. was administered by Jeffrey Alcantar RN; for sedation; 10:49:26 Procedure started. 10:49:32 Local anesthetic to right femoral artery with Lidocaine 2% by Kyle Mathur MD.INITIAL ACCESS ONLY 10:49:40 A 5 Fr sheath was inserted into the Right Femoral artery 10:50:06 A Cordis 5Fr Pigtail Catheter (MP) was advanced over the wire and used for LV Angiography. 10:51:27 LV hemodynamics recorded. 10:51:28 LV gram done using VELASCO 10:51:30 Injector settings: Ml/sec: 5, Volume: 15, 10:51:41 EF : 55 % 10:51:46 Catheter removed. 10:51:51 A Cordis 5Fr JL 4.0 Catheter (MP) was advanced over the wire and used for Left Coronary Angiography. 10:52:26 LCA angiography performed. 10:52:29 Injector settings: Ml/sec: 3, Volume: 6, 10:53:45 Catheter removed. 10:53:51 A Cordis 5Fr 3DRC Catheter (MP) was advanced over the wire and used for Right Coronary Angiography. 10:54:08 RCA angiography performed. 10:54:11 Injector settings: Ml/sec: 3, Volume: 6, 10:54:14 Catheter removed. 10:54:34 [place]amburg Wilton Eagleye IVUS Catheter opened to sterile field. 10:54:35 Merit BasixCompak Inflation Kit opened to sterile field. 10:54:36 Terumo 6Fr Aspen Sheath opened to sterile field. 10:55:51 Heparin Bolus 4000 units I.V. was administered by Jeffrey Alcantar RN; for anticoagulation; 10:56:04 [facility] Sci Choice PT Extra Support 182cm wire opened to sterile field. 10:56:05 Cordis 6FR XBLAD 3.5 guide catheter opened to sterile field. 10:56:09 Proceeding to intervention. 10:56:18 Sheath upsized to a 6 Fr Short. 10:56:26 6 Fr xblad 3.5 guide catheter was inserted over the wire 10:56:31 choice pt wire advanced. 10:56:32 Wire advanced across lesion. 10:56:40 IVUS catheter advanced over wire. 11:00:14 IVUS pass to LAD lesion performed. 11:00:16 IVUS catheter removed over wire. 11:03:38 Inflation Number: 1 A Knippa RX 3.0 x 12 stent was prepped and advanced across the Prox LAD. The stent was deployed at 17 MARYSE for 0:10 (min:sec). 11:05:20 Stent catheter was removed intact over wire. 11:05:20 Wire removed. 11:05:21 Guide catheter removed. 11:05:27 Cordis 6Fr Exoseal opened to sterile field. 11:05:35 Sheath removed intact; hemostasis achieved with Exoseal to the Right Femoral artery. 11:05:37 Procedure ended.(Physican Out) 11:05:47 Fluoroscopy time 04.20 minutes. 11:05:51 Fluoroscopy dose: 520 mGy 11:05:51 Flurop Dose total: 520 11:05:55 Contrast amount:Isovue 300 115ml. 11:05:57 Sharps counted by scrub and verified by R.N. 11:05:58 Insertion/operative site no bleeding no hematoma. 11:06:01 Post-op/insertion site Right Femoral artery dressed using a 4 x 4 and Tegaderm. 11:06:05 Post right femoral artery:stable 11:06:06 Post Procedure Pulses reassessed and unchanged 11:06:12 Post procedure rhythm: unchanged. 11:06:14 Estimated blood loss: 5 ml 11:06:16 Post procedure instruction explained to patient.Patient verbalizes understanding. 11:06:16 Patient needs reinforcement of post procedure teaching. 11:06:34 Procedure type changed to Cath procedure, Diagnostic procedure, LHC, LHC w/Coronaries, FFR/IVUS, Intra-Coronary IVUS Initial, PCI procedure, Coronary Stent Initial, Miscellaneous Procedures, Moderate Sedation up to 45 minutes 11:06:37 Procedure and supply charges have been captured, reviewed, submitted and are correct. 11:06:41 Procedure Complication : No complications 11:06:43 Vital chart was stopped 11:06:44 See physician's report for complete and final results. 11:07:02 Report given to Pre/Post Procedure Room. 11:07:06 Patient transfered to Pre/Post Procedure Room with Stretcher. 11:07:08 Procedure ended. 11:07:08 Full Disclosure recording stopped 11:07:17 ACC-PCI Only Patient was given prescriptions, or instructed by Kyle Mathur MD to start/continue the following medications upon discharge: Plavix 11:07:19 End room use (Document Last) Intervention Summary Intervention Notes Time ActionType Lesion and Equipment Action# Pressure Duration Attributes Used 11:03:38 Place stent Prox LAD Knippa RX 1 17 00:10 3.0 x 12 stent Device Usage Item Name Manufacture Quantity Catalog Number Hospital Part Current Mini mal Lot# / Charge Number Stock Stock Serial# Code Acist Acist 1 [id number] 826990 [id number] 20 Syringe Medical Systems Inc Bag Microtek 1 2002S 535892 89033 601632 5 Power-One Inc. Medline Cardinal 1 [id number] 126702 23326 983770 5 Cath Pack Health Terumo 5Fr Terumo 1 [id number] 799319 837838 012433 [address] Al St Al 1 132385 765619 255284 691522 30 260cm J .035 wire Acist Hand Acist 1 39525 872967 468421 354488 5 Control Medical Systems Inc Acist Acist 1 62798 852140 312632 670263 5 Manifold Medical Systems Inc Diagnostic Cardinal 1 [id number] 361891 71010 854221 30 Infinity Health 5Fr Multipack catheter Tegaderm 4 3M 1 1626W 394902 687820 646476 5 x 4 Cordis 5Fr Cardinal 1 456280 5 Pigtail Health Catheter (MP) Cordis 5Fr Cardinal 1 232726 5 JL 4.0 Health Catheter (MP) Cordis 5Fr Cardinal 1 400427 5 3DRC Health Catheter (MP) Samburg Samburg 1 [id number] 608354 770957 093278 8 Wilton Eagleye IVUS Catheter Merit Merit 1 IP2322 811424 396774 750043 15 Syncano Medical Inflation Kit Terumo 6Fr Terumo 1 SNX344 031929 684083 594917 40 Aspen Sheath [facility] Sci [facility] 1 [id number] 496029 569279 972307 5 Choice PT Scientific Extra Support 182cm wire Cordis 6FR Cardinal 1 [id number] 163078 372464 790947 10 XBLAD 3.5 Health guide catheter Knippa RX 3.0 Medtronic 1 [id number] 546997 6411624 754025 5 [id number] x 12 stent Cordis 6Fr Cardinal 1 EX600 223176 831847 216878 10 [facility] [employer] Signature Audit [place] Stage Time Signature Unsigned Intra-Procedure 12/29/2016 Mouna Slade 11:10:23 AM RT(R) Signatures Monitor : Mouna Slade RT Signature : Date : Time : [id number] [place] [address]
[~2016-12-29 08:36] MED LIST changes: +VOLTAREN100 GM TOPICAL; +Wellbutrin PO
[2016-12-29] MEDS ORDERED: DIOVAN HCT 320/1 TA2 PO (08:59)
[2016-12-29] MEDS ORDERED: ATIVAN2 MG PO (09:00)
[2016-12-29] MEDS ORDERED: K-DUR20 MEQ PO (09:03)
[2016-12-29] MEDS ORDERED: NITROSTAT0.4 MG SL (09:04)
[2016-12-29] MEDS ORDERED: VOLTAREN100 GM TOPICAL (09:06)
[2016-12-29] MEDS ORDERED: BETAPACE 80 MG80 MG PO (09:08)
[2016-12-29 09:17] VITALS: BP 195/80; BMI 21.3
[2016-12-29 09:22] LABS: BASOPHILS 0.8 % (0-2); EOSINOPHILS 7.1 % (0-7); HEMATOCRIT 38.2 % (36.0-48.0); HEMOGLOBIN 12.3 g/dL (12-16); IMMATURE GRANULOCYTES 0.2 % (0-5); LYMPHOCYTES 26.1 % (15-50); MCH 27.3 pg (26.0-34.0); MCHC 32.2 g/dL (31.0-37.0); MCV 84.9 fL (80.0-100.0); MEAN PLATELET VOLUME 9.4 fL (7.4-10.4); MONOCYTES 9.3 % (2-11); NEUTROPHILS 56.5 % (40-80); RDW 15.3 % (11.5-14.5); WBC 5.2 10x3/uL (4.8-10.8)
[2016-12-29 09:27] LABS: PLATELET COUNT 298 10x3/uL (130-400)
[2016-12-29 09:34] LABS: ANION GAP 12.4 mmol/L (8-16); CARBON DIOXIDE 26.8 mmol/L (21.0-32.0); POTASSIUM - SERUM 3.2 mmol/L (3.5-5.1)
--- NOTE | 2016-12-29 11:35 | NUR ---
2L NC, NO RESP DISTRESS. RIGHT GROIN 6F EXOSEAL CDI, NO BLEEDING OR HEMATOMA. NO C/O PAIN OR NAUSEA AT THIS TIME. VSS. FAMILY AT BEDSIDE, CALL LIGHT WITHIN REACH.
--- NOTE | 2016-12-29 12:05 | NUR ---
RIGHT GROIN 6F EXOSEAL CDI, NO BLEEDING OR HEMATOMA NOTED. 2L NC, NO RESP DISTRESS. NO C/O PAIN OR NAUSEA. VSS. WILL CONTINUE TO MONITOR CLOSELY.
--- NOTE | 2016-12-29 12:20 | NUR ---
RESTING QUIETLY WITH EYES CLOSED. VSS. RIGHT GROIN 6FEXOSEAL CDI, NO BLEEDING NOTED. 2L NC, NO RESP DISTRESS. CALL LIGHT WITHIN REACH.
--- NOTE | 2016-12-29 14:30 | NUR ---
HOB ELEVATED 30 DEGREES. RIGHT GROIN 6F EXOSEAL CDI, NO BLEEDIG NOTED.
--- NOTE | 2016-12-29 14:45 | NUR ---
LEFT AC PIV D/C'D WITH CATHETER INTACT, BAND AID TO SITE. UP TO BEDSIDE TO GET DRESSED.
--- NOTE | 2016-12-29 15:00 | NUR ---
AMBULATED TO RESTROOM TO VOID.
--- NOTE | 2016-12-29 15:05 | NUR ---
DISCHARGE INSTRUCTIONS GIVEN, VERBALIZED UNDERSTANDING.
--- NOTE | 2016-12-29 15:14 | NUR ---
TAKEN OUT VIA WHEELCHAIR BY CATH STAFF NUCLEAR WEAPONS OFFICER. LEFT FACILITY WITH AND ALL PERSONAL BELONGINGS.
--- NOTE | 2017-01-07 14:14 | OP ---
PATIENT NAME: CAITLIN BROOKS MEDICAL RECORD: [id number] :38 LOCATION:D.CAT ADMISSION DATE: SURGEON: KANNAN SALINAS MD DATE OF OPERATION: 12/29/2016 PROCEDURES: Bilateral selective renal angiography. INDICATION: Uncontrolled hypertension. PROCEDURE IN DETAIL: After informed consent was obtained and after detailed explanation of risks, benefits as well as alternative therapies, the patient elected to proceed with angiogram. The right femoral area had a preexisting sheath from coronary angiography. All catheters exchanged through this sheath. FINDINGS: 1. The right renal artery is a solitary artery off the aorta with no significant renal stenosis. No pressure damping at the ostium. 2. The left renal artery is a solitary artery off the aorta with no significant stenosis. No pressure damping. OVERALL IMPRESSION: No renal artery stenosis exists, only hypertension, is essential hypertension. TRANSINT:[id number] Voice Confirmation ID: [id number] DOCUMENT ID: [id number] KANNAN SALINAS MD at 1414 CC: [id number] DICTATION DATE: 12/29/16 1212 PATIENT ACCOUNTS CLERK: 12/29/16 1417 DEP CLI 12/29/16 [place] [id number] [place] [address]
--- NOTE | 2017-01-07 14:14 | OP ---
PATIENT NAME: CAITLIN BROOKS MEDICAL RECORD: [id number] :36 LOCATION:D.CAT ADMISSION DATE: SURGEON: KANNAN SALINAS MD DATE OF OPERATION: 12/29/2016 PROCEDURES: 1. PTCA stent LAD. 2. Intravascular ultrasound. 3. Left heart catheterization. 4. Selective coronary angiography. 5. Left ventriculogram. INDICATION: Angina and coronary artery disease. PROCEDURE IN DETAIL: After informed consent was obtained and after a detailed explanation of risks, benefits as well as alternative therapies, the patient elected to proceed with angiogram and angioplasty. The right femoral area was prepped and draped in normal sterile fashion. The right femoral artery was cannulated via modified Seldinger technique with placement of 6-Malagasy sheath. All catheters were exchanged through this sheath. FINDINGS: Left ventriculogram was performed in standard 30-degree VELASCO view, reveals good cardiac wall motion throughout all segments. Overall ejection fraction estimated at 50%. SELECTIVE CORONARY ANGIOGRAPHY: 1. Left main showed no significant angiographic disease. 2. Left anterior descending has a 74% stenosis proximally confirmed by intravascular ultrasound. Previously placed stents were elsewise wide open. 3. Left circumflex is small, moderate irregularities. 4. Right coronary is large, dominant with no significant stenosis. PTCA STENT OF THE LAD: The stent used was a 3.0 x 12 mm Barnum. Result was 0% residual stenosis. OVERALL IMPRESSION: Successful percutaneous transluminal coronary angioplasty stent of the left anterior descending going from 74% initial stenosis, which correlates to the perfusion defect on nuclear stress testing, to 0% residual stenosis. TRANSINT:[id number] Voice Confirmation ID: [id number] DOCUMENT ID: [id number] KANNAN SALINAS MD at 1414 CC: [id number] DICTATION DATE: 12/29/16 1108 PRIVATE BANKER: 12/29/16 1216 [facility] CLI 12/29/16 [place] [id number]
== END 2016-12-29 15:14 | disposition home or self-care (01) ==
LOC: D.CATH 08:36
PROVIDERS: Internal Medicine Interventional Cardiology
DX: I25.10 Atherosclerotic heart disease of native coronary artery without angina pectoris (principal); I48.0 Paroxysmal atrial fibrillation; R06.00 Dyspnea, unspecified; I10 Essential (primary) hypertension; Z01.812 Encounter for preprocedural laboratory examination; R94.30 Abnormal result of cardiovascular function study, unspecified
CPT/HCPCS: 93458; 92978; 36252; C9600

== ENCOUNTER → 2017-04-19 09:44 | Outpatient (CLI) | payer MEDICARE, BC, OTHER ==
--- NOTE | ~2017-04-19 | HEMODYNAMI ---
PATIENT:CAITLIN BROOKS MEDICAL RECORD: [id number] : 36 LOCATION:D.CAT ADMISSION DATE: 04/19/17 Generatedon:04/19/201713:41 Patient name: CAITLIN BROOKS Patient #: [id number] SSN: [id number] : 1940 Date of study: 04/19/2017 Page: Of Hemodynamic Procedure Report Patient Data Patient Demographics Procedure consent was obtained First Name: CAITLIN Gender: Female Last Name: TODD : 1940 Middle Initial: E Age: 77 year(s) Patient #: [id number] Race: SSN: [id number] Additional ID: [id number] Contact details Address: [address] [place] [address] State: [place] City: [place] Zip code: [address] Past Medical History Allergies Allergen Reaction Date Comments Reported Other allergy 02/06/2016 morphine,codeine Codeine 04/19/2017 Other allergy 04/19/2017 lisinopril, minoxidil, morphine, pravastatin Admission Admission Data Admission Date: 04/19/2017 Admission Time: 9:44 Procedure Procedure Types Cath Procedure Diagnostic Procedure Cardioversion Procedure Description Procedure Date Procedure Date: 04/19/2017 Procedure Start Time: 13:31 Procedure End Time: 13:37 Procedure Staff Name Function Kyle Mathur MD Performing Physician Jazlyn Dickerson RT Monitor Tara Downing RN Nurse Procedure Medications Medication Administration Route Dosage Oxygen NC 4 l/min Refer to Anesthesia Notes for Sedation Medications Hemodynamics Rest Heart Rate: 118 (bpm) Snapshots Pre Cath Intra NCS Post Cath Vital Signs Time Heart Resp SPO2 etCO2 NIBP (mmHg) Rhythm Pain Sedation Rate (ipm) (%) (mmHg) Status Level (bpm) 13:25:05 116 16 99 25.5 177/109(136) A-Fib 0 (11) 10(A) , No pain 13:29:25 117 16 99 24.8 169/104(152) A-Fib 0 (11) 9(A) , No pain 13:33:47 54 18 99 21 145/69(95) SB 0 (11) 9(A) , No pain 13:39:17 56 17 99 14.2 142/72(102) SB 0 (11) 10(A) , No pain Medications Time Medication Route Dose Verified Delivered Reason Notes Effective ness by by 13:25:06 Oxygen NC 4 Tara Pacheco used for l/min Salina Salina seconds inspector RN 13:28:16 Refer to Tara Pacheco for Anesthesia Salina Salina sedation Notes for RN RN Sedation Medications Procedure Log Time Note 13:15:27 Tara Downing RN sent for patient. Start room use. 13:15:28 Time tracking: Regular hours 13:15:31 Plan of Care:Hemodynamics will remain stable., Cardiac rhythm will remain stable., Comfort level will be maintained., Respiratory function will remain adequate., Patient/ family verbilizes understanding of procedure., Procedure tolerated without complication., Recovers from procedure without complications.. 13:20:34 Patient received from Pre/Post Procedure Room to [facility] 3 Alert and oriented. Tansferred to table in Supine position. 13:20:35 Warm blankets applied, and brandi hugger turned on for patient comfort. 13:20:35 Correct patient and procedure confirmed by team. 13:20:36 Signed procedure consent form obtained from patient. 13:20:37 ECG and BP/O2 sat monitors applied to patient. 13:20:38 Full Disclosure recording started 13:23:52 Vital chart was started 13:24:08 Baseline sample Acquired. 13:24:17 Rhythm: atrial fibrillation 13:24:32 H&P Date Dictated: 04/18/2017 Within 30 days and on chart., H&P Addendum completed by physician on day of procedure. (MUST COMPLETE FOR ALL OUTPATIENTS). 13:24:33 Pre-procedure instructions explained to patient. 13:24:34 Pre-op teaching completed and patient verbalized understanding. 13:24:36 Family in patients room. 13:24:37 Patient NPO since Midnight. 13:24:49 Patient allergic to Codeine 13:25:06 Oxygen 4 l/min NC was administered by Tara Downing RN; used for procedure; 13:25:25 Patient allergic to Other allergylisinopril, minoxidil, morphine, pravastatin 13:25:59 Is patient on blood thinner?Yes 13:26:02 ACC The patient was administered the following blood thiners within the last 24 hours: Xarelto 13:26:04 Patient diabetic? No. 13:26:17 see anesthesia notes for assessment 13:26:24 Patient pain scale 0/10 ?. 13:26:34 IV patent on arrival in left antecubital with 0.9% NaCl at [facility]. 13:26:36 Lab results completed and on chart. 13:26:39 Alarms reviewed by Nikita Leong. 13:28:16 Refer to Anesthesia Notes for Sedation Medications was administered by Tara Downing RN; for sedation; 13:29:49 Final Timeout: patient, procedure, and site verified with staff and physician. All members of the team are in agreement. 13:29:54 Physical assessment completed. ASA score P 2 - A patient with mild systemic disease as per Kyle Mathur MD. 13:29:58 Sedation plan: IV Moderate Sedation Medication:Propofol 13:30:38 Procedure started. 13:31:35 Quick combo pads placed on patients chest and back. 13:31:42 Defibrillator synced and charged to 275 Joules. 13:31:43 Shock delivered. 13:31:47 Patient cardioverted to sinus rhythm . 13:32:04 Procedure ended.(Physican Out) 13:32:20 Post-procedure physical assessment completed. ASA score P 2 - A patient with mild systemic disease as per Kyle Mathur MD. 13:32:22 Post procedure rhythm: sinus bradycardia 13:32:25 Post procedure instruction explained to patient.Patient verbalizes understanding. 13:32:26 Patient needs reinforcement of post procedure teaching. 13:32:29 Procedure and supply charges have been captured, reviewed, submitted and are correct. 13:33:01 See physician's report for complete and final results. 13:33:04 Report given to Pre/Post Procedure Room. 13:33:23 Quick Combo opened to sterile field. 13:37:36 Vital chart was stopped 13:37:43 Procedure ended. 13:37:43 Full Disclosure recording stopped 13:37:57 Vital chart was started 13:39:25 End room use (Document Last) 13:40:08 Patient transfered to Pre/Post Procedure Room with Stretcher. 13:41:48 Vital chart was stopped Device Usage Item Manufacture Quantity Catalog Hospital Part Current Minimal Lot# / Name Number Charge Number Tato Gonzalez al# Code [facility] InvoTek [place] [address] [id number] 5 Combo Signature Audit [place] Stage Time Signature Unsigned Intra-Procedure 04/19/2017 Jazlyn 1:41:45 PM Counts RT(R) Signatures Monitor : Jazlyn Signature : Counts RT Date : Time : [address] [address]
--- NOTE | ~2017-04-19 | OP ---
PATIENT NAME: CAITLIN BROOKS MEDICAL RECORD: [id number] :36 LOCATION:D.CAT ADMISSION DATE: SURGEON: KANNAN SALINAS MD DATE OF OPERATION: 04/19/2017 PROCEDURE: DC cardioversion. INDICATION: Atrial fibrillation. PROCEDURE IN DETAIL: IV conscious sedation was performed per anesthesia. Continuous heart rate, O2 saturation, and blood pressure monitoring were undertaken, all of which remained stable. She received one shock at 275 joules restoring sinus rhythm. OVERALL IMPRESSION: Successful DC cardioversion from atrial fibrillation to sinus rhythm. TRANSINT:[id number] Voice Confirmation ID: [id number] DOCUMENT ID: [id number] KANNAN SALINAS MD at 1153 CC: [id number] DICTATION DATE: 04/19/17 1334 COMMUNICATION ELECTRONIC TECHNICIAN: 04/19/17 1416 DEP CLI 04/19/[address] [address]
[~2017-04-19 09:44] MED LIST changes: +BETAPACE 80 MG80 MG PO; +DIOVAN HCT 320/1 TA2 PO; +K-DUR20 MEQ PO; +NITROSTAT0.4 MG SL; +XARELTO10 MG PO
[2017-04-19 10:55] LABS: BASOPHILS 0.3 % (0-2); EOSINOPHILS 0.9 % (0-7); HEMATOCRIT 41.2 % (36.0-48.0); HEMOGLOBIN 13.5 g/dL (12-16); IMMATURE GRANULOCYTES 0.6 % (0-5); LYMPHOCYTES 14.4 % (15-50); MCH 28.7 pg (26.0-34.0); MCHC 32.8 g/dL (31.0-37.0); MCV 87.5 fL (80.0-100.0); MEAN PLATELET VOLUME 9.8 fL (7.4-10.4); MONOCYTES 7.1 % (2-11); NEUTROPHILS 76.7 % (40-80); PLATELET COUNT 336 10x3/uL (130-400); RBC 4.71 10x6/uL (4.00-5.40); RDW 16.4 % (11.5-14.5)
[2017-04-19 10:59] VITALS: BP 170/100; BMI 24.2
[2017-04-19 11:07] LABS: ANION GAP 11.8 mmol/L (8-16); POTASSIUM - SERUM 3.8 mmol/L (3.5-5.1)
[2017-04-19 11:08] LABS: INR 2.17 (0.85-1.17); PROTIME 23.6 SECONDS (11.6-15.0)
== END | disposition home or self-care (01) ==
LOC: D.CATH 09:44
PROVIDERS: Internal Medicine Interventional Cardiology
DX: I48.91 Unspecified atrial fibrillation (principal); I10 Essential (primary) hypertension; E78.5 Hyperlipidemia, unspecified; E03.9 Hypothyroidism, unspecified; I25.10 Atherosclerotic heart disease of native coronary artery without angina pectoris; Z01.812 Encounter for preprocedural laboratory examination

== ENCOUNTER 2018-09-08 15:47 | Inpatient (IN) | payer MEDICARE, BC, OTHER ==
[~2018-09-08] VITALS: Ht 170.2 cm; Wt 63.6 kg
--- NOTE | ~2018-09-08 | DS ---
PATIENT:CAITLIN BROOKS :36 MEDICAL RECORD: [id number] DISCHARGE SUMMARY ADMISSION DATE: 09/08/18 DISCHARGE DATE: 09/12/18 IDENTIFYING DATA: The patient is 78 years old and she was admitted to the hospital on a voluntary basis because of hallucinations. HISTORY OF PRESENT ILLNESS: The patient comes to us from home. She presented to the Emergency Room at [facility] the day prior via ambulance. The patient called an ambulance to her home after a fall. She was oriented to person, place, time, and situation. Apparently, she had a fracture of the tip of her ulna but did not require surgical reduction. Unfortunately she has had ongoing hallucinations at home. She sees people and snakes and is intensely disturbed and frightened by them. She tells me that people are telling her that they are not real, but she says they look real to her and she is afraid. She denied any problems with her memory, but she does have some residual effects from a left hemispheric stroke and does have a facial droop on the right along with some right-sided weakness. HOSPITAL COURSE: The patient was admitted to the hospital and fully evaluated from both a medical, psychological, and social standpoint. Although the patient was oriented, it was clear that she did have a dementia. Based on her history, it was believed that the dementia was vascular in nature. She was treated with memory enhancing and a low dose of an antipsychotic medication and showed a very rapid improvement. She had no evidence of a mood disorder and showed no evidence of direct or direct dangerousness. She had a supportive home environment and was subsequently discharged at her request. DISCHARGE DIAGNOSES: AXIS I: Vascular dementia. AXIS II: None. AXIS III: Hypertension, coronary artery disease, hypercholesterolemia, status post stroke, hypothyroidism. AXIS IV: Moderate. AXIS V: Global Assessment Of Functioning is 40. PLAN: At the time of discharge, the patient was not psychotic and did not show evidence of acute or direct dangerousness. The psychotic symptoms are thought to be related to a vascular dementia. She is tolerating her medicines well and should have outpatient followup with her primary care physician. TRANSINT:[id number] Voice Confirmation ID: [id number] DOCUMENT ID: [id number] YULY PADILLA MD CC: [id number] DICTATION DATE: 09/14/18 1538 VOICE DATA COMMUNICATIONS ENGINEER: 09/15/18 0122 DIS IN 09/12/[address] [facility] [address] [facility] [place] [address]
[2018-09-08] MEDS ORDERED: SYNTHROID125 MCG (16:56)
[2018-09-08 17:06] VITALS: BP 150/93; BMI 22.0
--- NOTE | 2018-09-08 18:27 | NUR ---
PATIENT ARRIVED TO UNIT FROM EMS FROM [facility] ER. PATIENT WENT TO ER DUE TO A FALL AT HOME. PATIENT IS ALERT AND ORIENTED X4. PATIENT IS FRIENDLY WITH STAFF. CODE STATUS: DNR. CODEWORD: LOVE. PATIENT ADMIT VITALS: B/P: 150/93, P: 92, R: 18, T: 97.4, O2: 97%. ADMIT WEIGHT: 140.6 IBS. PATIENT GAVE VERBAL CONSENT FOR ADMISSION. CONTACT NUMBERS ARE: LAMIN(SON) -[phone], LTRHYB-[phone] (SISTER), ELENA-() [phone]. PATIENT IS AMBULATORY AND CONTINENT NEEDS ASSISTANCE WITH WALKING DUE TO DIZZINESS. PT IS IN A WHEELCHAIR. PT HAS A BRIDGE THAT SHE CAN REMOVE AND INSERT BY HERSELF. MOIST AND PINK MUCOUS MEMBRANES. PATIENT HAS A GREEN NICKEL SIZE BRUISE UPPER FOREHEAD, RIGHT HA BRUISE 6 INCH LONG AND 4 INCH WIDE, RIGHT HA MOLE THAT PEELED THE SKIN OF, RIGHT KNEE SKINNED, RIGHT THIGH 2 BRUISES NICKEL SIZE, LEFT HA SCABBED AREA OF DIME, LEFT KNEE SCRAPED, BACK SURGERY IN 05 SCAR ON BACK, LEFT SCAR SIDE 9 INCH LONG, RIGHT HIP BRUISES X3, LEFT ELBOW BRUISE ON FRONT 5 INCH AND BACK QUARTER SIZE, LEFT SPRAINED WRIST BRUISE 4 CM AND 4 CM. CHAIR ALARM IN PLACE AND ACTIVE. PATIENT CALLED TO BRING CLOTHES TOMMORROW.
--- NOTE | 2018-09-09 01:57 | NUR ---
B) Patient is alert and oriented to person, place and time, hallucinating seeing 'aligator snakes' in her room at times I) No scheduled medications this shift, PRN ativan 0.5 mg PO and Haldol 2 mg PO given at 20:53 for anxiety R) Medication compliant, pleasnat and friendly, P) Continue plan of care.
[2018-09-09 07:23] LABS: CHOL - HDL RATIO 3.9 ratio (2.3-4.1); LDL-HDL RATIO 2.4 ratio (1.5-3.5); THYROID STIMULATING HORMONE 25.9 uIU/mL (0.36-3.74)
[2018-09-09 08:07] VITALS: BMI 21.9
[2018-09-09 10:30] VITALS: BP 110/79
--- NOTE | 2018-09-09 10:41 | NUR ---
RECEIVED PT IN DINING ROOM FOR B'FAST, ALERT, ORIENTED, COOPERATIVE, VISUAL HALLUCINATIONS REPORTED BY RETAIL DELIVERY DRIVER. ENJOYS VISITING WITH PEERS. COOPERATIVE WITH PLAN OF CARE. CONT POC INCLUDING MEDS AND GROUP THERAPY ORDERED.
[2018-09-09 12:44] LABS: BASOPHILS 0.5 % (0-2); HEMOGLOBIN 11.9 g/dL (12-16); IMMATURE GRANULOCYTES 0.1 % (0-5); LYMPHOCYTES 14.7 % (15-50); MCH 28.6 pg (26.0-34.0); MCHC 33.1 g/dL (31.0-37.0); MCV 86.5 fL (80.0-100.0); MEAN PLATELET VOLUME 10.4 fL (7.4-10.4); MONOCYTES 9.6 % (2-11); NEUTROPHILS 70.1 % (40-80); PLATELET COUNT 341 10x3/uL (130-400); RBC 4.16 10x6/uL (4.00-5.40); RDW 22.9 % (11.5-14.5); WBC 7.4 10x3/uL (4.8-10.8)
[2018-09-09 12:56] LABS: ALBUMIN 3.2 g/dL (3.4-5.0); ANION GAP 11.4 mmol/L (8-16); BILIRUBIN - TOTAL 0.66 mg/dL (0.2-1.3); CALCIUM 8.7 mg/dL (8.5-10.1); CARBON DIOXIDE 25.6 mmol/L (21.0-32.0); CREATININE - SERUM 1.3 mg/dL (0.6-1.3); PROTEIN - SERUM 8.1 g/dL (6.4-8.2)
[2018-09-09 20:10] VITALS: BP 146/74
--- NOTE | 2018-09-09 23:16 | NUR ---
Patient requested the wrap on her right arm cast be replaced. She stated "it got wet last night from me sweating and it stinks." She also c/o rubbing from the cast in her armpit. Fresh bandage wrap was placed and gauze applied to prevent further rubbing and irriation.
--- NOTE | 2018-09-09 23:31 | NUR ---
B.) Patient is alert and oriented to self, situation and place. I.) Provided PM medications. Offered patient a bed bath. R.) Compliant with PM medications. Patient prefered to bathe herself in her room. P.) Continue Plan of Care
--- NOTE | 2018-09-10 02:59 | NUR ---
PATIENT GIVEN ATIVAN 0.5 MG PO AND HALDOL 2 MG PO FOR ANXIETY AT 22:36.
[2018-09-10 07:00] VITALS: BP 146/79
--- NOTE | 2018-09-10 10:46 | NUR ---
RECEIVED PT IN DINING ROOM FOR B'FAST, ALERT, CALM, COOPERATIVE. APPETITE GOOD. FEEDS SELF. STATES THAT SHE SAW RED AND BLUE LIGHTS DURING THE NIGHT, BUT KNEW THEY WERE NOT REAL. CONT POC DIRECTED.
--- NOTE | 2018-09-10 11:41 | PSY ---
PATIENT NAME:CAITLIN BROOKS MEDICAL RECORD: [id number] : 36 LOCATION:[facility] ADMISSION DATE: 09/08/18 ACCOUNT: [id number] PSYCHIATRIC EVALUATION DATE OF EVALUATION: 09/09/18 IDENTIFYING DATA: The patient is 78 years old and she is admitted to the hospital on a voluntary basis. CHIEF COMPLAINT: Hallucinations. HISTORY OF PRESENT ILLNESS: The patient comes to us from home. She had presented yesterday to the [facility] Emergency Room via ambulance. The patient called an ambulance to her home after a fall. She is oriented to person, place, time and situation. She apparently fractured the tip of her ulna and it does not require any attention other than being wrapped in a followup in a couple of weeks. She unfortunately has been having ongoing hallucinations at home. She sees people, snakes and is very frightened of them. She tells me that people tell her that they are not real, but they look real to her and they are very frightening. She denies any problems with her memory, but she does have some and indeed she has had a previous left hemispheric stroke and does have a facial droop on the right along with some right-sided weakness. She was here last night and apparently had active hallucinations of a snake in her room. She had to be given p.r.n. Haldol and Ativan because of this. She denies drug and alcohol abuse. She is pretty limited in her insight about her condition. PAST MEDICAL HISTORY: Significant of course for a stroke. She also has a history of coronary artery disease and hypertension. She has hypercholesterolemia and hypothyroidism. PAST PSYCHIATRIC HISTORY: None by her account. FAMILY HISTORY: Noncontributory. ALLERGIES: MINOXIDIL, LISINOPRIL, MORPHINE, CODEINE, PRAVASTATIN. CURRENT MEDICATIONS: Include Synthroid, potassium, Lasix, Diovan, Betapace, Crestor, Nitrostat, Cozaar and Plavix. SOCIAL HISTORY: The patient is to her third . They have been for 2 years. She has 2 adult children, both sons, one lives in [place], the other here in [place]. The patient is originally from a [place] town near [place]. 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 She has no history of drug or alcohol abuse. MENTAL STATUS EXAMINATION: The patient is awake, alert and oriented to person, place as well as time and situation. Her mood is euthymic. Her affect is generally appropriate. Thought processes are circumstantial. Memory, concentration, and abstraction abilities are moderately impaired and she has no active thoughts of harming herself or others as well as overt psychotic symptoms. ASSETS: Supportive family members. LIABILITIES: Limited insight. DIAGNOSTIC IMPRESSION: AXIS I: Vascular dementia. AXIS II: None. AXIS III: Hypertension, coronary artery disease, hypercholesterolemia, status post stroke, hypothyroidism. AXIS IV: Moderate. AXIS V: Global assessment of functioning is 35. PLAN: At this time, the patient is admitted to the hospital secondary to psychotic symptoms with what appears to be a vascular dementia. She will be treated with mood stabilizing and memory enhancing medications as deemed appropriate. I will try to avoid using an antipsychotic, but if I need to I will use the lowest dose that is effective of course. I anticipate she will be able to return home. TRANSINT:[id number] Voice Confirmation ID: [id number] DOCUMENT ID: [id number] YULY PADILLA MD at 1141 CC: [id number] DICTATION DATE: 09/09/18 1235 MARINE CARGO SURVEYOR: 09/09/18 1422 ADM IN [place] [id number] [place] [address]
[2018-09-10 21:15] VITALS: BP 170/83
--- NOTE | 2018-09-10 22:30 | NUR ---
RECEIVED IN DAYROOM. SITTING IN A CHAIR WITH PEERS AT HER SIDE. CALM AND COOPERATIVE WITH CARE AND ASSESSMENT. NO SIGNS OF HALLUCINATIONS. REDIRECT AND REORIENT NEEDED. RESTING IN BED WITH EYES CLOSED AT THIS TIME. CONTINUE PLAN OF CARE
[2018-09-11 07:00] VITALS: BP 138/77
--- NOTE | 2018-09-11 07:30 | NUR ---
PT IS ALERT AND ORIENTED TO SELF, SITUATION AND PLACE. MED COMPLIANT. CALM AND COOPERATIVE WITH ASSESSMENT. REDIRECT AND REORIENT NEEDED. NO AGGRESSION NOTED. FALL PRECAUTIONS IN PLACE. WILL CPOC.
[2018-09-11 12:04] VITALS: Ht 170.2 cm; Wt 63.6 kg
--- NOTE | 2018-09-11 15:34 | PN ---
PATIENT:CAITLIN BROOKS MEDICAL RECORD: [id number] LOCATION:[facility] Willis112 ADMISSION DATE: 09/08/18 PROGRESS NOTE DATE OF SERVICE: 09/10/2018 SUBJECTIVE: The patient's case was discussed with staff. She has no new complaint. OBJECTIVE: The patient is in good behavioral control with poor insight about her condition. She does tolerate her medicines well. ASSESSMENT: No change in diagnoses. PLAN: The patient does have an elevated TSH. I am going to increase her Synthroid slightly. She will be monitored for changes associated with that. TRANSINT:[id number] Voice Confirmation ID: [id number] DOCUMENT ID: [id number] YULY PADILLA MD at 1534 CC: [id number] DICTATION DATE: 09/10/18 1155 STEM ROLLER: 09/10/18 1510 ADM IN [place] [id number] [place] [address]
[2018-09-11] MEDS ORDERED: PERPHENAZINE2 MG PO (16:06)
[2018-09-11] MEDS ORDERED: DONEPEZIL HCL5 MG PO (16:06)
[2018-09-11] MEDS ORDERED: SYNTHROID150 MCG PO (16:06)
[2018-09-11 16:49] LABS: INR 1.49 (0.85-1.17); PROTIME 17.4 SECONDS (11.6-15.0)
--- NOTE | 2018-09-11 21:40 | NUR ---
RECEIVED IN HALLWAY. SITTING OUTSIDE OF NURSES STATION. SOCIALIZING WITH PEERS. CALM AND COOPERATIVE WITH CARE AND ASSESSMENT. NO SIGNS OF HALLUCINATIONS. REDIRECT AND REORIENT NEEDED. RESTING IN BED WITH EYES CLOSED AT THIS TIME. CONTINUE PLAN OF CARE
[2018-09-11 22:28] VITALS: BP 172/98
[2018-09-12 06:09] LABS: RAPID PLASMA REAGIN Non Reactive (Non Reactive)
[2018-09-12 08:19] VITALS: BP 152/85
--- NOTE | 2018-09-12 14:50 | PN ---
PATIENT:CAITLIN BROOKS MEDICAL RECORD: [id number] LOCATION:[facility] ADMISSION DATE: 09/08/18 PROGRESS NOTE DATE OF SERVICE: 09/11/2018 SUBJECTIVE: The patient's case was discussed with staff. She has no new complaint. OBJECTIVE: The patient is in good behavioral control. She has no hallucinations. Her mood is euthymic. ASSESSMENT: No change in diagnoses. PLAN: The patient's Synthroid has been increased. Her long-term prognosis is guarded and I anticipate transitioning her out of the hospital tomorrow. TRANSINT:[id number] Voice Confirmation ID: [id number] DOCUMENT ID: [id number] YULY PADILLA MD at 1450 CC: [id number] DICTATION DATE: 09/11/18 1608 MORALE OFFICER: 09/11/18 1655 ADM IN [facility] [address] [id number]
--- NOTE | 2018-09-12 15:21 | NUR ---
B) PATIENT IS AWAKE AND ALERT TO PERSON, PLACE AND TIME. CALM AND COOPERATIVE WITH CARE AND ASSESSMENT. DENIES HALLUCINATIONS. I) ADMINISTERED PRESCRIBED MEDICATIIONS ORDERED. R) COMPLIANT WITH MEDICATIONS, SOCIALIZES WITH PEERS. P) WILL CONTINUE WITH PLAN IF CARE.
--- NOTE | 2018-09-12 15:30 | NUR ---
PT DISCHARGED HOME WITH . NO S/SX OF DISTRESS NOTED. NO C/O PAIN OR DISCOMFORT NOTED OR VOICED. DISCHARGE PAPERWORK FAXED TO PCP. COPY OF PAPERWORK SENT WITH PT. F/U APPT MADE WITH DR. YOUSSEF ON 09/19/18 T 3838.
--- NOTE | 2018-09-13 16:41 | PN ---
PATIENT:CAITLIN BROOKS MEDICAL RECORD: [id number] LOCATION:[facility]112 ADMISSION DATE: 09/08/18 PROGRESS NOTE DATE OF SERVICE: 09/12/2018 SUBJECTIVE: The patient's case was discussed with staff. She has no new complaint. OBJECTIVE: The patient has had another night of no active hallucinations. She is requesting discharge and will be discharged to home with her . Follow up will be with the primary care physician. ASSESSMENT: No change in diagnosis. PLAN: As above. The patient will be discharged today. There is no evidence of acute or direct dangerousness. TRANSINT:[id number] Voice Confirmation ID: [id number] DOCUMENT ID: [id number] YULY PADILLA MD at 1641 CC: [id number] DICTATION DATE: 09/12/18 1526 STABLE HELPER: 09/12/18 1859 DIS IN 09/12/18 [facility] [address] [place] [address]
== END 2018-09-12 15:30 | disposition home or self-care (01) | DRG 57 ==
LOC: D.PSYCH 15:47
PROVIDERS: Family Medicine; ADMIT Psychiatry & Neurology Psychiatry; ATTEND Psychiatry & Neurology Psychiatry
DX: I69.319 Unspecified symptoms and signs involving cognitive functions following cerebral infarction (principal); I69.351 Hemiplegia and hemiparesis following cerebral infarction affecting right dominant side; F01.50 Vascular dementia, unspecified severity, without behavioral disturbance, psychotic disturbance, mood disturbance, and anxiety; R44.1 Visual hallucinations; I10 Essential (primary) hypertension; I48.2 Chronic atrial fibrillation; E03.9 Hypothyroidism, unspecified; E78.5 Hyperlipidemia, unspecified; S52.001A Unspecified fracture of upper end of right ulna, initial encounter for closed fracture; W19.XXXA Unspecified fall, initial encounter; I25.10 Atherosclerotic heart disease of native coronary artery without angina pectoris